=== PATIENT | male | born 1980 | race Caucasian/White ===

== ENCOUNTER 2017-04-27 20:25 | Inpatient (IN) | payer OTHER ==
[~2017-04-27] VITALS: Ht 177.8 cm; Wt 74.8 kg
[2017-04-27] MEDS ORDERED: FAMOTIDINE 20MG/5ML IV PUSH IV STA (20:35)
[2017-04-27] MEDS ORDERED: SODIUM CHLORIDE 0.9% 1000ML 2,000 ML IV STA (20:35)
[2017-04-27] MEDS ORDERED: ONDANSETRON INJ 2 MG/ML 2 ML VIAL IV STA (20:35)
--- NOTE | 2017-04-27 20:44 | EMERGENCY ROOM VISIT NOTE ---
History Report prepared by James: Teodora Willett Under the Supervision of: Dr. Orville Dallas M.D. First contact with patient: 20:31 Chief Complaint: ABDOMINAL PAIN Stated Complaint: STOMACH PAIN History of Present Illness The patient is a 36 year old male who presents to the Emergency Room with complaints of intermittent episodes of worsening abdominal pain that began 5 days ago. He reports that he has been having episodes of abdominal pain that seems to worsen randomly, noting that today after he ate yogurt and a turkey sandwich he began experiencing pain above his belly button and some abdominal swelling. The patient states that he has been unable to eat due to his discomfort, which he notes feels like someone hit him in the stomach. He denies any recent falls, nausea, vomiting, diarrhea, testicular pain, blood in urine, or pain with urination. The patient reports that his last bowel movement was about an hour ago, noting it was normal. He notes that he has not been passing more gas than usual. The patient denies a history of hernias, reflux, gastritis , or smoking. Source of History: patient Position: abdomen Quality: other (abdominal pain) Timing: other (persistent) Associated Symptoms: No nausea, No vomiting, No diarrhea Note: Associated symptoms include: pain above his belly button and some abdominal swelling. Patient denies: pain with urination, blood in urine, or testicular pain. Review of Systems See HPI for pertinent positives and negatives. A total of ten systems were reviewed and were otherwise negative. Past Medical & Surgical Medical Problems: (1) SBO (small bowel obstruction) Family History Patient reports no known family medical history. No pertinent family history. Social History Smoking Status: Never Smoker Smokeless Tobacco Use: Unknown Alcohol Use: none Drug Use: none Housing Status: lives with significant other Occupation Status: employed Current/Historical Medications No Active Prescriptions or Reported Meds Allergies Coded Allergies: No Known Allergies (Unverified , 04/27/17) Physical Exam Vital Signs Date Time Temp Pulse Resp B/P (MAP) Pulse Ox O2 Delivery O2 Flow Rate FiO2 04/27/17 22:44 72 16 130/75 98 Room Air 04/27/17 22:05 68 18 145/92 98 Room Air 04/27/17 20:26 37.0 71 18 142/76 96 Room Air Physical Exam GENERAL: Awake, alert, uncomfortable-appearing, but in no distress HENT: Dry mucous membranes. Normocephalic, atraumatic. Oropharynx unremarkable. EYES: Normal conjunctiva. Sclera non-icteric. NECK: Supple. No nuchal rigidity. FROM. No JVD. RESPIRATORY: Clear to auscultation. CARDIAC: Regular rate, normal rhythm. Extremities warm and well perfused. Pulses equal. ABDOMEN: Mild periumbilical tenderness to palpation. No peritoneal signs. RECTAL: Deferred. MUSCULOSKELETAL: Chest examination reveals no tenderness. The back is symmetrical on inspection without obvious abnormality. There is no CVA tenderness to palpation. No joint edema. LOWER EXTREMITIES: Calves are equal size bilaterally and non-tender. No edema. No discoloration. NEURO: Normal sensorium. No sensory or motor deficits noted. SKIN: No rash or jaundice noted. Medical Decision & Procedures ER Provider Diagnostic Interpretation: Radiology results as stated below per my review and radiologist interpretation: CT OF THE ABDOMEN AND PELVIS WITH CONTRAST CLINICAL HISTORY: periumbilical pain COMPARISON STUDY: None. TECHNIQUE: Following IV administration of 113 mL of Optiray-320, axial images of the abdomen and pelvis were obtained from the lung bases to the proximal femurs. Images were reviewed in the axial, sagittal, and coronal planes. IV contrast was administered without complication. A dose lowering technique was utilized adhering to the principles of ALARA. CT DOSE: 298.96 mGy.cm FINDINGS: Lung bases are clear. The liver, spleen, adrenal glands, kidneys and pancreas are normal. There is no biliary or pancreatic ductal dilatation. There is no hydronephrosis or hydroureter. No pneumatosis, free air or portal venous gas is present. The mid small bowel is fluid-filled and moderately dilated. There is mild associated mesenteric infiltration. Small bowel feces sign is noted. Transition point within the right upper quadrant is shown on image 217 of 466. Distal small bowel and the colon are decompressed. There is a tubular structure within the right upper quadrant which appears to represent a portion of the bowel. This is contiguous with a 3 cm enhancing focus within the inferior right upper quadrant shown on axial image 227. This contains a duct. This suggest heterotopic pancreatic tissue. There is no lymphadenopathy. IMPRESSION: 1. Findings consistent with moderate grade small bowel obstruction. Fluid-filled moderately dilated small bowel with transition point within the right upper quadrant, likely within the ileum. Mild associated mesenteric infiltration. The etiology for the small bowel obstruction is not entirely clear on this exam. 2. 3 cm enhancing focus within the right upper quadrant which is highly suggestive of heterotopic pancreatic tissue, possibly associated with a Meckel's diverticulum. It is unclear whether these findings are related to the small bowel obstruction. Electronically signed by: Broderick Michaels M.D. 04/27/2017 10:19 PM Dictated Date/Time: 04/27/2017 10:05 PM Laboratory Results 04/27/17 20:46 Red Blood Count 5.04, Mean Corpuscular Volume 90.9, Mean Corpuscular Hemoglobin 32.3, Mean Corpuscular Hemoglobin Concent 35.6, Mean Platelet Volume 10.3, Neutrophils (%) (Auto) 76.1, Lymphocytes (%) (Auto) 10.8, Monocytes (%) (Auto) 8.7, Eosinophils (%) (Auto) 4.2, Basophils (%) (Auto) 0.2, Neutrophils # (Auto) 6.26, Lymphocytes # (Auto) 0.89, Monocytes # (Auto) 0.72, Eosinophils # (Auto) 0.35, Basophils # (Auto) 0.02 04/27/17 20:46 Test 04/27/17 20:46 04/27/17 22:44 White Blood Count 8.24 K/uL (4.8-10.8) Red Blood Count 5.04 M/uL (4.7-6.1) Hemoglobin 16.3 g/dL (14.0-18.0) Hematocrit 45.8 % (42-52) Mean Corpuscular Volume 90.9 fL (80-100) Mean Corpuscular Hemoglobin 32.3 pg (25-34) Mean Corpuscular Hemoglobin Concent 35.6 g/dl (32-36) Platelet Count 251 K/uL (130-400) Mean Platelet Volume 10.3 fL (7.4-10.4) Neutrophils (%) (Auto) 76.1 % Lymphocytes (%) (Auto) 10.8 % Monocytes (%) (Auto) 8.7 % Eosinophils (%) (Auto) 4.2 % Basophils (%) (Auto) 0.2 % Neutrophils # (Auto) 6.26 K/uL (1.4-6.5) Lymphocytes # (Auto) 0.89 K/uL (1.2-3.4) Monocytes # (Auto) 0.72 K/uL (0.11-0.59) Eosinophils # (Auto) 0.35 K/uL (0-0.5) Basophils # (Auto) 0.02 K/uL (0-0.2) RDW Standard Deviation 40.7 fL (36.4-46.3) RDW Coefficient of Variation 12.3 % (11.5-14.5) Immature Granulocyte % (Auto) 0.0 % Immature Granulocyte # (Auto) 0.00 K/uL (0.00-0.02) Anion Gap 5.0 mmol/L (3-11) Est Creatinine Clear Calc Drug Dose 105.5 ml/min Estimated GFR () 112.9 Estimated GFR (Non- 97.4 BUN/Creatinine Ratio 19.9 (10-20) Calcium Level 9.8 mg/dl (8.5-10.1) Total Bilirubin 2.0 mg/dl (0.2-1) Direct Bilirubin 0.3 mg/dl (0-0.2) Aspartate Amino Transf (AST/SGOT) 14 U/L (15-37) Alanine Aminotransferase (ALT/SGPT) 19 U/L (12-78) Alkaline Phosphatase 84 U/L (45-117) Total Protein 8.6 gm/dl (6.4-8.2) Albumin 4.9 gm/dl (3.4-5.0) Lipase 116 U/L (73-393) Lactic Acid Level 0.6 mmol/L (0.4-2.0) Laboratory results reviewed by me Medications Administered Medications (Trade) Dose Ordered Sig/Elijah Route Start Time Stop Time Status Last Admin Dose Admin Sodium Chloride 2,000 ml @ 999 mls/hr Q2H1M STAT IV 04/27/17 20:35 04/27/17 22:35 DC 04/27/17 21:07 999 MLS/HR Famotidine (Pepcid 20mg Iv Push) 20 mg NOW STAT IV 04/27/17 20:35 04/27/17 20:40 DC 04/27/17 21:08 20 MG Ondansetron HCl (Zofran Inj) 4 mg NOW STAT IV 04/27/17 20:35 04/27/17 20:40 DC 04/27/17 21:08 4 MG Miscellaneous Information (Patient'S Allergy Info Needs Entered) 1 ea NOW STAT N/A 04/27/17 20:57 04/27/17 20:58 DC 04/27/17 20:57 1 EA Fentanyl Citrate (Fentanyl Inj) 100 mcg NOW STAT IV 04/27/17 22:30 04/27/17 22:31 DC 04/27/17 22:42 100 MCG ED Course 2031: The patient was evaluated in room A10. A complete history and physical exam was performed. 2234: I discussed the patient with Marcel Minor - he will evaluate the patient for further treatment. 2325: Marcel Dasilva- general surgery: paged and he suggests that we admit the patient. Medical Decision I reviewed the patient's past medical history, medications, and the nursing notes as described above. Differential diagnosis: Etiologies such as appendicitis, diverticulitis, PUD, biliary pathology, UTI, pancreatitis, obstruction, mesenteric ischemia, aortic pathology, infections, inflammatory bowel disease, renal colic, as well as others were entertained. The patient is a 36-year-old gentleman who presents emergency Department with persistent periumbilical abdominal pain that began on Wednesday worsened today per hpi. I'll patient is uncomfortable but no acute distress, afebrile with stable vital signs. On exam, patient has mild periumbilical tenderness to palpation but no peritoneal signs. No discrete tenderness over McBurney's point. Negative Scott sign. WBC and lactate wnl. CT abd/pel demonstrates possible high grade bowel obstruction. While patient has been able to eat and have bowel movements, the patient's pain could be c/w with this finding. Gen surg, Dr. Bush , paged and recommends medicine admission for monitoring and he will consult. Case d/w [facility], who will admit the patient for further management. Medication Reconcilliation Current Medication List: was personally reviewed by me Blood Pressure Screening Patient's blood pressure: Normal blood pressure Blood pressure disposition: Did not require urgent referral Consults Time Called: 2234 Consulting Physician: Marcel Minor Returned Call: [phone] I discussed the patient with Marcel Minor - he will evaluate the patient for further treatment. Additional Consults: Time Called: 2325 Consulted Physician: Marcel Dasilva - general surgery Returned Call: [phone] Additional Comments: Dr. Bush, [facility]: paged and he suggests that we admit the patient. Impression Primary Impression: SBO (small bowel obstruction) Scribe Attestation The scribe's documentation has been prepared under my direction and personally reviewed by me in its entirety. I confirm that the note above accurately reflects all work, treatment, procedures, and medical decision making performed by me. Departure Information Dispostion Being Evaluated By Hospitalist Prescriptions No Active Prescriptions or Reported Meds Forms Call Back Authorization, HOME CARE DOCUMENTATION FORM, IMPORTANT VISIT INFORMATION Patient Instructions My [facility]
[2017-04-27] MEDS ORDERED: PATIENT'S ALLERGY INFO NEEDS ENTERED STA (20:57)
[2017-04-27] MEDS ORDERED: OPTIRAY 320 IV PRN (21:00)
[2017-04-27 21:13] LABS: BASO % 0.2 %; BASO ABS # 0.02 K/uL (0-0.2); EOS % 4.2 %; EOS ABS # 0.35 K/uL (0-0.5); HEMATOCRIT 45.8 % (42-52); HEMOGLOBIN 16.3 g/dL (14.0-18.0); LYMPH % 10.8 %; LYMPH ABS # 0.89 K/uL (1.2-3.4); MEAN CELL VOLUME 90.9 fL (80-100); MEAN CORPUSCULAR HEMOGLOBIN 32.3 pg (25-34); MEAN CORPUSCULAR HGB CONC 35.6 g/dl (32-36); MEAN PLATELET VOLUME 10.3 fL (7.4-10.4); MONO % 8.7 %; MONO ABS # 0.72 K/uL (0.11-0.59); NEUT % 76.1 %; NEUT ABS # 6.26 K/uL (1.4-6.5); PLATELET COUNT 251 K/uL (130-400); RED CELL DISTRIBUTION WIDTH CV 12.3 % (11.5-14.5); RED CELL DISTRIBUTION WIDTH SD 40.7 fL (36.4-46.3); WHITE BLOOD COUNT 8.24 K/uL (4.8-10.8)
[2017-04-27 21:33] LABS: ALBUMIN 4.9 gm/dl (3.4-5.0); CALCIUM 9.8 mg/dl (8.5-10.1); CREATININE 0.98 mg/dl (0.60-1.40); POTASSIUM 3.8 mmol/L (3.5-5.1)
[2017-04-27 21:36] LABS: TOTAL PROTEIN 8.6 gm/dl (6.4-8.2)
--- NOTE | 2017-04-27 22:21 | DIAGNOSTIC IMAGING REPORT ---
CT OF THE ABDOMEN AND PELVIS WITH CONTRAST CLINICAL HISTORY: periumbilical pain COMPARISON STUDY: None. TECHNIQUE: Following IV administration of 113 mL of Optiray-320, axial images of the abdomen and pelvis were obtained from the lung bases to the proximal femurs. Images were reviewed in the axial, sagittal, and coronal planes. IV contrast was administered without complication. A dose lowering technique was utilized adhering to the principles of ALARA. CT DOSE: 298.96 mGy.cm FINDINGS: Lung bases are clear. The liver, spleen, adrenal glands, kidneys and pancreas are normal. There is no biliary or pancreatic ductal dilatation. There is no hydronephrosis or hydroureter. No pneumatosis, free air or portal venous gas is present. The mid small bowel is fluid-filled and moderately dilated. There is mild associated mesenteric infiltration. Small bowel feces sign is noted. Transition point within the right upper quadrant is shown on image 217 of 466. Distal small bowel and the colon are decompressed. There is a tubular structure within the right upper quadrant which appears to represent a portion of the bowel. This is contiguous with a 3 cm enhancing focus within the inferior right upper quadrant shown on axial image 227. This contains a duct. This suggest heterotopic pancreatic tissue. There is no lymphadenopathy. IMPRESSION: 1. Findings consistent with moderate grade small bowel obstruction. Fluid-filled moderately dilated small bowel with transition point within the right upper quadrant, likely within the ileum. Mild associated mesenteric infiltration. The etiology for the small bowel obstruction is not entirely clear on this exam. 2. 3 cm enhancing focus within the right upper quadrant which is highly suggestive of heterotopic pancreatic tissue, possibly associated with a Meckel's diverticulum. It is unclear whether these findings are related to the small bowel obstruction. Electronically signed by: Broderick Michaels M.D. 04/27/2017 10:19 PM Dictated Date/Time: 04/27/2017 10:05 PM
[2017-04-27] MEDS ORDERED: FENTANYL CITRATE INJ 50 MCG/1 ML 2 ML VIAL IV STA (22:30)
[2017-04-27] MEDS ORDERED: KETOROLAC TROMETHAMINE 30 MG/ML VIAL IV STA (23:09)
[2017-04-27] MEDS ORDERED: PROCHLORPERAZINE INJ 5 MG in SYRINGE 4 ML IV PRN (23:30)
[2017-04-27] MEDS ORDERED: LORAZEPAM 2 MG/ML 1 ML VIAL IV PRN (23:30)
[2017-04-27] MEDS ORDERED: ONDANSETRON INJ 2 MG/ML 2 ML VIAL IV PRN (23:30)
[2017-04-27] MEDS ORDERED: LORAZEPAM INJ 0.5 MG in SYRINGE 0.75 ML IV PRN (23:45)
[2017-04-27 23:50] VITALS: BP 130/73; PULSE 76; TEMP 37.3; O2SAT 93; O2SAT 95; Ht 177.8 cm; Wt 74.8 kg
[2017-04-28] VITALS (12 sets, daily range): BP systolic 109–130; BP diastolic 63–80; PULSE 57–69; TEMP 36.8–37.7; O2SAT 94–96
[2017-04-28] MEDS ORDERED: NURSING VERBAL MED ORDER ONE ×2 (01:30→07:30)
--- NOTE | 2017-04-28 01:34 | Surgery Consultation ---
Consultation Date of Consultation: Apr 28, 2017. Attending Physician: Dyan Palumbo DO History of Present Illness The patient is a 36 year old male who presents to the Emergency Room with complaints of intermittent episodes of worsening abdominal pain that began 5 days ago. He reports that he has been having episodes of abdominal pain that seems to worsen randomly, noting that today after he ate yogurt and a turkey sandwich he began experiencing pain above his belly button and some abdominal swelling. The patient states that he has been unable to eat due to his discomfort, which he notes feels like someone hit him in the stomach. He denies any recent falls, nausea, vomiting, diarrhea, testicular pain, blood in urine, or pain with urination. The patient reports that his last bowel movement was about an hour ago, noting it was normal. He notes that he has not been passing more gas than usual. The patient denies a history of hernias, reflux, gastritis , or smoking. I saw pt at bedside, I reviewed pt's H/P with pt, pt is still have abdominal pain, with nausea, no vomiting, pt passed small amount BM today, but pt is still have abdominal pain, pt could not eat food for 5 days, pt denies diarrhea , no fever. pt has no abdominal surgery history. Family History Patient reports no known family medical history. Social History Smoking Status: Never Smoker Smokeless Tobacco Use: No Alcohol Use: occasionally Drug Use: none Housing Status: lives with significant other Occupation Status: employed Allergies Coded Allergies: No Known Allergies (Unverified , 04/27/17) Home Medications No Active Prescriptions or Reported Meds Current Inpatient Medications Current Inpatient Medications Medications (Trade) Dose Ordered Sig/Elijah Route Start Time Stop Time Status Last Admin Dose Admin Ioversol (Optiray 320) 111 ml UD PRN IV 04/27/17 21:00 05/01/17 20:59 Ketorolac Tromethamine (Toradol Inj) 15 mg Q6H PRN IV. 04/27/17 23:15 05/02/17 23:14 Hydromorphone HCl (Dilaudid Inj) 0.5 mg Q4H PRN IV 04/27/17 23:15 05/11/17 23:14 Acetaminophen (Tylenol Tab) 650 mg Q4H PRN PO 04/27/17 23:30 05/27/17 23:29 Potassium Chloride/Sodium Chloride 1,000 ml @ 60 mls/hr [id number] IV 04/28/17 01:00 05/28/17 00:59 Lorazepam (Ativan Inj) 0.5 mg Q4H PRN IV 04/27/17 23:30 05/27/17 23:29 Prochlorperazine Edisylate 5 mg/ Syringe 5 ml @ 5 mls/min Q6H PRN IV 04/27/17 23:30 05/27/17 23:29 Ondansetron HCl (Zofran Inj) 4 mg Q6H PRN IV 04/27/17 23:30 05/27/17 23:29 Lorazepam 0.5 mg/ Syringe 1 ml @ 1 mls/min Q4H PRN IV 04/27/17 23:45 05/27/17 23:44 Review of Systems Constitutional: No fever, No chills, No sweats, No weight loss, No weakness, No fatigue, No problem reported Eyes: No worsening of vision, No eye pain, No redness, No discharge, No diplopia, No problem reported ENT: No hearing loss, No unusual epistaxis, No nasal symptoms, No sore throat, No tinnitus, No dental problems, No trouble swallowing, No problem reported Respiratory: No cough, No sputum, No wheezing, No shortness of breath, No dyspnea on exertion, No dyspnea at rest, No hemoptysis, No problem reported Cardiovascular: No chest pain, No orthopnea, No PND, No edema, No claudication , No palpitations, No problem reported Abdomen: + pain, + nausea Musculoskeletal: No joint pain, No muscle pain, No swelling, No calf pain, No problem reported Genitourinary - Male: No hematuria, No dysuria, No urinary frequency, No urinary urgency, No urinary hesitancy, No urinary retention, No urinary incontinence, No penile discharge, No lesions, No impotence, No problem reported Neurologic: No memory loss, No paralysis, No weakness, No numbness/tingling, No vertigo, No balance problems, No problem reported Psychiatric: No depression symptoms, No anhedonism, No anxiety, No insomnia, No substance abuse, No problem reported Endocrine: No fatigue, No excessive thirst, No excessive urination, No problem reported Hematologic / Lymphatic: No abnormal bleeding/bruising, No clotting problems, No swollen lymph nodes, No night sweats, No problem reported Allergic / Immunologic: No environmental allergies, No seasonal allergies, No pet sensitivities, No food allergies, No hives, No frequent infections, No poor healing, No prolonged convalescence, No problem reported Physical Exam Date Time Temp Pulse Resp B/P (MAP) Pulse Ox O2 Delivery O2 Flow Rate FiO2 04/27/17 23:50 37.3 76 18 130/73 95 Room Air 04/27/17 23:50 37.3 76 18 130/73 (92) 93 Room Air 04/27/17 23:33 61 18 145/84 97 04/27/17 22:44 72 16 130/75 98 Room Air 04/27/17 22:05 68 18 145/92 98 Room Air 04/27/17 20:26 37.0 71 18 142/76 96 Room Air General Appearance: WD/WN, + mild distress Head: normocephalic Eyes: normal inspection ENT: normal ENT inspection Neck: supple, no JVD Respiratory/Chest: chest non-tender, lungs clear, normal breath sounds, no respiratory distress Cardiovascular: regular rate, rhythm, no edema, no gallop, no JVD, no murmur Abdomen/GI: normal bowel sounds, + tenderness (at RUQ ), + distended, + guarding Extremities/Musculoskelatal: normal inspection, no calf tenderness, normal capillary refill Neurologic/Psych: no motor/sensory deficits, alert, normal mood/affect Skin: normal color, warm/dry, no rash Laboratory Results Last 24 Hours Test 04/27/17 20:46 04/27/17 22:44 White Blood Count 8.24 K/uL Red Blood Count 5.04 M/uL Hemoglobin 16.3 g/dL Hematocrit 45.8 % Mean Corpuscular Volume 90.9 fL Mean Corpuscular Hemoglobin 32.3 pg Mean Corpuscular Hemoglobin Concent 35.6 g/dl Platelet Count 251 K/uL Mean Platelet Volume 10.3 fL Neutrophils (%) (Auto) 76.1 % Lymphocytes (%) (Auto) 10.8 % Monocytes (%) (Auto) 8.7 % Eosinophils (%) (Auto) 4.2 % Basophils (%) (Auto) 0.2 % Neutrophils # (Auto) 6.26 K/uL Lymphocytes # (Auto) 0.89 K/uL Monocytes # (Auto) 0.72 K/uL Eosinophils # (Auto) 0.35 K/uL Basophils # (Auto) 0.02 K/uL RDW Standard Deviation 40.7 fL RDW Coefficient of Variation 12.3 % Immature Granulocyte % (Auto) 0.0 % Immature Granulocyte # (Auto) 0.00 K/uL Sodium Level 137 mmol/L Potassium Level 3.8 mmol/L Chloride Level 103 mmol/L Carbon Dioxide Level 29 mmol/L Anion Gap 5.0 mmol/L Blood Urea Nitrogen 19 mg/dl Creatinine 0.98 mg/dl Est Creatinine Clear Calc Drug Dose 105.5 ml/min Estimated GFR () 112.9 Estimated GFR (Non- 97.4 BUN/Creatinine Ratio 19.9 Random Glucose 86 mg/dl Calcium Level 9.8 mg/dl Total Bilirubin 2.0 mg/dl Direct Bilirubin 0.3 mg/dl Aspartate Amino Transf (AST/SGOT) 14 U/L Alanine Aminotransferase (ALT/SGPT) 19 U/L Alkaline Phosphatase 84 U/L Total Protein 8.6 gm/dl Albumin 4.9 gm/dl Lipase 116 U/L Lactic Acid Level 0.6 mmol/L Assessment & Plan CT scan-FINDINGS: Lung bases are clear. The liver, spleen, adrenal glands, kidneys and pancreas are normal. There is no biliary or pancreatic ductal dilatation. There is no hydronephrosis or hydroureter. No pneumatosis, free air or portal venous gas is present. The mid small bowel is fluid-filled and moderately dilated. There is mild associated mesenteric infiltration. Small bowel feces sign is noted. Transition point within the right upper quadrant is shown on image 217 of 466. Distal small bowel and the colon are decompressed. There is a tubular structure within the right upper quadrant which appears to represent a portion of the bowel. This is contiguous with a 3 cm enhancing focus within the inferior right upper quadrant shown on axial image 227. This contains a duct. This suggest heterotopic pancreatic tissue. There is no lymphadenopathy. IMPRESSION: 1. Findings consistent with moderate grade small bowel obstruction. Fluid-filled moderately dilated small bowel with transition point within the right upper quadrant, likely within the ileum. Mild associated mesenteric infiltration. The etiology for the small bowel obstruction is not entirely clear on this exam. 2. 3 cm enhancing focus within the right upper quadrant which is highly suggestive of heterotopic pancreatic tissue, possibly associated with a Meckel's diverticulum. It is unclear whether these findings are related to the small bowel obstruction. Assessment: pt is a 36 year old male who was admitted to hospital for abdominal and Dx SBO, pt has no abdominal surgery history, IMP: SBO, possible internal hernia, base on pt has 5 days history abdominal pain, not get better, I recommend to do exploratory laparotomy, possible bowel resection, stoma, D/W benefits, risks and alternatives of the procedure, the risks - infection, bleeding, anastomotic leak abscess, injury bowel, pt understood, he agrees with the surgery, I answered all questions.
[2017-04-28] MEDS ORDERED: EpHEDrine SULFATE INJ 50 MG/ML AMP IV PRN (01:45)
[2017-04-28] MEDS ORDERED: HYDROmorphone INJ 1 MG/ML SYR IV PRN (01:45)
[2017-04-28] MEDS ORDERED: ATROPINE SULFATE 0.1 MG/ML 5ML SYR IV PRN (01:45)
[2017-04-28] MEDS ORDERED: FENTANYL CITRATE INJ 50 MCG/1 ML 2 ML VIAL IV PRN (01:45)
[2017-04-28] MEDS ORDERED: ONDANSETRON INJ 2 MG/ML 2 ML VIAL IV PRN (01:45)
[2017-04-28] MEDS: NSS + 20MEQ KCL 1000ML 1,000 ML IV SCH ×2 (01:46→05:26)
[2017-04-28] MEDS ORDERED: SUCCINYLCHOLINE CHLORIDE 20 MG/ML 10 ML VIAL IV ONE (01:50)
[2017-04-28] MEDS ORDERED: PROPOFOL IV EMULSION 10 MG/ML 20 ML VIAL IV ONE (01:50)
[2017-04-28] MEDS ORDERED: ROCURONIUM BROMIDE 10 MG/ML 5 ML VIAL IV ONE (01:50)
[2017-04-28] MEDS ORDERED: ONDANSETRON INJ 2 MG/ML 2 ML VIAL ONE (01:50)
[2017-04-28] MEDS ORDERED: NEOSTIGMINE METHYLSULFATE 5 MG/5 ML SYR ONE (01:50)
[2017-04-28] MEDS ORDERED: DEXAMETHASONE SOD INJ 4 MG/ML VIAL ONE (01:50)
[2017-04-28] MEDS ORDERED: GLYCOPYRROLATE INJ 0.2 MG/ML VIAL ONE (01:50)
[2017-04-28] MEDS ORDERED: FENTANYL CITRATE INJ 50 MCG/1 ML 2 ML VIAL ONE ×2 (01:51→03:00)
[2017-04-28] MEDS ORDERED: MIDAZOLAM HCL 1 MG/ML 2ML VIAL ONE (01:51)
--- NOTE | 2017-04-28 02:15 | HISTORY & PHYSICAL EXAMINATION ---
DATE OF ADMISSION: 04/27/2017 CHIEF COMPLAINT: Abdominal pain. HISTORY OF PRESENT ILLNESS: History obtained from the patient, , and records. No significant medical history. Five days history of achy achy upper abdominal pain with nausea, no emesis, good bowel movement. Constant pain, worsening in the last few days. No fever, no chills. Patient brought to the Emergency Room by . MEDICAL HISTORY: As above. SURGERIES: None. HOME MEDICATIONS: None. ALLERGIES: No known drug allergies. FAMILY HISTORY: No family history of hypertension, cancer. PERSONAL AND SOCIAL HISTORY: Nonsmoker, no chronic intake of alcoholic beverages. Santa/mcdonough. REVIEW OF SYSTEMS: As per HPI. All 10 systems reviewed, all other ROS negative. PHYSICAL EXAMINATION: VITAL SIGNS: Blood pressure was noted to be 130/70, pulse rate 66, RR 18, temp 37, sats 98 on room air. GENERAL: Noted to be slightly uncomfortable, no respiratory distress, pleasant. SKIN: Normal color, warm. HEENT: [place] palpebral conjunctivae. No ptosis. Dry mucosa. NECK: Supple, nontender. CHEST: Clear to auscultation. No tenderness. HEART: Regular rate and rhythm, no murmur. ABDOMEN: Epigastric tenderness, some distention. EXTREMITIES: No edema. No gross deformities. No tenderness. NEUROLOGIC: Coherent. No gross focality. LABORATORY DATA: Hemoglobin was noted to be 16.3, hematocrit 45.8, white cell count 8.24, platelets 251. Sodium 137, potassium 3.8, chloride 103, CO2 of 29, BUN 19, creatinine 0.9, glucose was noted to be 86. LFTs, lipase normal CT abdomen and pelvis showed moderate grade small-bowel obstruction, fluid-filled moderate dilated small-bowel with transition part in the right upper quadrant, likely within ileum, with mild associated mesenteric infiltration, a 3 cm enhancing focus right upper quadrant, heterotrophic pancreatic tissue versus Meckel's diverticulum. ASSESSMENT: Abdominal Pain small-bowel obstruction on CT, heterotopic tissue right upper quadrant. PLAN: GMF analgesia, antiemetics, IV fluids. Bowel rest. Surgery consult. Abnormal abdominal CT, abdominal pain. DVT prophylaxis, SCDs. Full code. MTDD
[2017-04-28] MEDS ORDERED: BUPIVACAINE 0.5 % 5 MG/1 ML MPF 30ML VIAL ONE (02:19)
[2017-04-28] MEDS ORDERED: LIDOCAINE HCL 1% 20 ML VIAL ONE (02:19)
[2017-04-28] MEDS ORDERED: CEFAZOLIN SOD 1 GM VIAL ONE (02:54)
[2017-04-28] MEDS ORDERED: BACITRACIN OINT 15 GM TUBE ONE (03:33)
--- NOTE | 2017-04-28 04:12 | Anesthesiology Progress Note ---
Anesthesia Post Op Note Date & Time Apr 28, 2017 at 04:11 Vital Signs Pain Intensity: 0.0 Vital Signs Past 12 Hours Date Time Temp Pulse Resp B/P (MAP) Pulse Ox O2 Delivery O2 Flow Rate FiO2 04/27/17 23:50 37.3 76 18 130/73 95 Room Air 04/27/17 23:50 93 Room Air 04/27/17 23:50 37.3 76 18 130/73 (92) 93 Room Air 04/27/17 23:33 61 18 145/84 97 04/27/17 22:44 72 16 130/75 98 Room Air 04/27/17 22:05 68 18 145/92 98 Room Air 04/27/17 20:26 37.0 71 18 142/76 96 Room Air Notes Mental Status: alert / awake / arousable, participated in evaluation Pt Amnestic to Procedure: Yes Nausea / Vomiting: adequately controlled Pain: adequately controlled Airway Patency, RR, SpO2: stable & adequate BP & HR: stable & adequate Hydration State: stable & adequate Anesthetic Complications: no major complications apparent
[2017-04-28] MEDS ORDERED: CEFAZOLIN SOD 2000MG/15 ML IV PUSH IV ONE (06:00)
[2017-04-28 06:57] LABS: EOS % 0.1 %; EOS ABS # 0.01 K/uL (0-0.5); HEMATOCRIT 43.7 % (42-52); HEMOGLOBIN 15.5 g/dL (14.0-18.0); IG# 0.01 K/uL (0.00-0.02); LYMPH % 2.2 %; LYMPH ABS # 0.24 K/uL (1.2-3.4); MEAN CELL VOLUME 91.8 fL (80-100); MEAN CORPUSCULAR HEMOGLOBIN 32.6 pg (25-34); MEAN CORPUSCULAR HGB CONC 35.5 g/dl (32-36); MEAN PLATELET VOLUME 10.3 fL (7.4-10.4); MONO ABS # 0.22 K/uL (0.11-0.59); NEUT % 95.6 %; NEUT ABS # 10.43 K/uL (1.4-6.5); PLATELET COUNT 233 K/uL (130-400); RED CELL DISTRIBUTION WIDTH CV 12.2 % (11.5-14.5); RED CELL DISTRIBUTION WIDTH SD 41.1 fL (36.4-46.3); WHITE BLOOD COUNT 10.91 K/uL (4.8-10.8)
[2017-04-28] MEDS: HYDROmorphone INJ 0.5 MG/0.5 ML SYR IV PRN ×4 (07:12→22:00)
--- NOTE | 2017-04-28 07:20 | OPERATIVE REPORT ---
DATE OF OPERATION: 04/28/2017 PREOPERATIVE DIAGNOSIS: Small-bowel obstruction. POSTOPERATIVE DIAGNOSIS: Same. PROCEDURE: Exploratory laparotomy, lysis of fibber tissue SURGEON: Jairo Bush MD. ANESTHESIA: General. ESTIMATED BLOOD LOSS: About 10 mL IV FLUIDS: 1000 mL FINDINGS: Small-bowel obstruction caused by the fiber tissue of adhesion. COMPLICATIONS: None. INDICATIONS FOR THE PROCEDURE: This is a 36-year-old gentleman who presented to the ED with 5-day history of acute abdominal pain and the patient had a CT scan showing small-bowel obstruction. The patient will be required to do exploratory laparotomy, possible bowel resection and stoma. I did talk to the patient about the benefit and risk, alternate procedure. I indicated the risks may include but not limited such as bleeding, infection, abscess, anastomosis leak, injury to the bowel. The patient understands. He signed informed consent. He agreed to proceed with procedure. I answered all questions. DETAILS OF PROCEDURE: We brought the patient to the OR, put the patient in supine position. The patient received SCD on bilateral legs to prevent DVT. Also, the patient received 2 grams Ancef IV for prophylactic antibiotic. The patient received general anesthesia without difficulty. The patient also received Mooney catheter insertion. The abdomen was prepped and draped in routine sterile fashion after timeout, I made a midline incision, opened fascia, opened peritoneum under direct vision into the abdomen showing there was some yellow free fluid inside the abdomen and the small-bowel was dilated significantly. Then, we ran the small-bowel and then found the transition point in the right upper quadrant area. There was some fiber tissue band blocking the small-bowel. So I took down the band and we ran the small-bowel. The small bowel had no significant ischemia sign. The color was a little bit dark, but after we released the adhesion band, the small-bowel color changed to pink. When we ran the small-bowel, we found the patient had meckel's diverticulum 2 feet from cecum, but no infection sign, no obstruction sign. The lumen was patent. At this moment, no surgical resection the diverticulum. Hemostasis obtained and checked the liver and gallbladder were normal, stomach normal, the appendix was normal finding. At this moment, we closed the abdomen incision. Closed the fascial layer by using #1 PDS continuous running, closed subcutaneous layer by using 2-0 Vicryl continuous running, closed skin by using staple. We put the dressing on. The patient tolerated the procedure well. All the instrument, needle, sponge count correct x2 at the end of the case. The patient transferred to recovery room in stable condition. I attest to the content of the Intraoperative Record and any orders documented therein. Any exceptions are noted below. MTDD
[2017-04-28] MEDS ORDERED: ACETAMINOPHEN IV 100 ML IV STA (07:28)
[2017-04-28 07:31] LABS: ALBUMIN 3.9 gm/dl (3.4-5.0); CALCIUM 8.4 mg/dl (8.5-10.1); CREATININE 1.03 mg/dl (0.60-1.40)
[2017-04-28 07:36] LABS: TOTAL PROTEIN 7.1 gm/dl (6.4-8.2)
--- NOTE | 2017-04-28 08:10 | Surgery Progress Note ---
Surgery Progress Note Date of Service Apr 28, 2017. Subjective + feeling well F/U S/P exp lap, lysis adhesion, POD 5 hours, pt is stable, no nausea, no vomiting, T 37.6 Objective Vital Signs: Date Time Temp Pulse Resp B/P (MAP) Pulse Ox O2 Delivery O2 Flow Rate FiO2 04/28/17 06:45 37.6 69 17 122/70 (87) 96 Room Air 04/28/17 05:45 37.5 63 16 116/67 (83) 96 Room Air 04/28/17 05:15 37.5 58 16 130/63 (85) 94 Room Air 04/28/17 05:02 37.3 65 17 111/70 (84) 96 Room Air 04/28/17 04:52 96 Room Air 04/28/17 04:45 37.3 59 17 129/75 (93) 95 Room Air 04/28/17 04:27 36.8 64 16 121/69 95 Room Air 04/28/17 04:10 60 16 134/76 95 Room Air 04/28/17 04:05 59 16 144/70 99 Room Air 04/28/17 04:00 63 16 137/75 99 Room Air 04/28/17 03:55 36.5 65 16 130/90 100 Room Air 04/27/17 23:50 37.3 76 18 130/73 95 Room Air 04/27/17 23:50 93 Room Air 04/27/17 23:50 37.3 76 18 130/73 (92) 93 Room Air 04/27/17 23:33 61 18 145/84 97 04/27/17 22:44 72 16 130/75 98 Room Air 04/27/17 22:05 68 18 145/92 98 Room Air 04/27/17 20:26 37.0 71 18 142/76 96 Room Air General Appearance: WD/WN, no apparent distress Head: normocephalic Neck: supple, no JVD Respiratory/Chest: chest non-tender, lungs clear Cardiovascular: regular rate, rhythm, no edema, no gallop, no JVD, no murmur Abdomen: normal bowel sounds, non distended, + tenderness (at incision site) Incision(s): clean, dry, intact Extremities: normal range of motion, non-tender, normal inspection Laboratory Results: Results Past 24 Hours Test 04/27/17 20:46 04/27/17 22:44 04/28/17 06:43 04/28/17 06:46 Range/Units White Blood Count 8.24 10.91 4.8-10.8 K/uL Red Blood Count 5.04 4.76 4.7-6.1 M/uL Hemoglobin 16.3 15.5 14.0-18.0 g/dL Hematocrit 45.8 43.7 42-52 % Mean Corpuscular Volume 90.9 91.8 80-100 fL Mean Corpuscular Hemoglobin 32.3 32.6 25-34 pg Mean Corpuscular Hemoglobin Concent 35.6 35.5 32-36 g/dl Platelet Count 251 233 130-400 K/uL Mean Platelet Volume 10.3 10.3 7.4-10.4 fL Neutrophils (%) (Auto) 76.1 95.6 % Lymphocytes (%) (Auto) 10.8 2.2 % Monocytes (%) (Auto) 8.7 2.0 % Eosinophils (%) (Auto) 4.2 0.1 % Basophils (%) (Auto) 0.2 0.0 % Neutrophils # (Auto) 6.26 10.43 1.4-6.5 K/uL Lymphocytes # (Auto) 0.89 0.24 1.2-3.4 K/uL Monocytes # (Auto) 0.72 0.22 0.11-0.59 K/uL Eosinophils # (Auto) 0.35 0.01 0-0.5 K/uL Basophils # (Auto) 0.02 0.00 0-0.2 K/uL RDW Standard Deviation 40.7 41.1 36.4-46.3 fL RDW Coefficient of Variation 12.3 12.2 11.5-14.5 % Immature Granulocyte % (Auto) 0.0 0.1 % Immature Granulocyte # (Auto) 0.00 0.01 0.00-0.02 K/uL Sodium Level 137 136 136-145 mmol/L Potassium Level 3.8 4.0 3.5-5.1 mmol/L Chloride Level 103 104 98-107 mmol/L Carbon Dioxide Level 29 26 21-32 mmol/L Anion Gap 5.0 6.0 3-11 mmol/L Blood Urea Nitrogen 19 15 7-18 mg/dl Creatinine 0.98 1.03 0.60-1.40 mg/dl Est Creatinine Clear Calc Drug Dose 105.5 100.4 ml/min Estimated GFR () 112.9 106.3 Estimated GFR (Non- 97.4 91.7 BUN/Creatinine Ratio 19.9 14.7 10-20 Random Glucose 86 109 70-99 mg/dl Calcium Level 9.8 8.4 8.5-10.1 mg/dl Total Bilirubin 2.0 2.4 0.2-1 mg/dl Direct Bilirubin 0.3 0-0.2 mg/dl Aspartate Amino Transf (AST/SGOT) 14 11 15-37 U/L Alanine Aminotransferase (ALT/SGPT) 19 16 12-78 U/L Alkaline Phosphatase 84 75 45-117 U/L Total Protein 8.6 7.1 6.4-8.2 gm/dl Albumin 4.9 3.9 3.4-5.0 gm/dl Lipase 116 73-393 U/L Lactic Acid Level 0.6 1.0 0.4-2.0 mmol/L Globulin 3.2 2.5-4.0 gm/dl Albumin/Globulin Ratio 1.2 0.9-2 Assessment & Plan I informed pt about OR finding and the procedure pt had, pt understood, I answered all questions, continue treatment repeat labs in am, will F/U
--- NOTE | 2017-04-28 08:13 | Anesthesiology Progress Note ---
Anesthesia Post Op Note Date & Time Apr 28, 2017 at 08:12 Vital Signs Pain Intensity: 7.0 Vital Signs Past 12 Hours Date Time Temp Pulse Resp B/P (MAP) Pulse Ox O2 Delivery O2 Flow Rate FiO2 04/28/17 06:45 37.6 69 17 122/70 (87) 96 Room Air 04/28/17 05:45 37.5 63 16 116/67 (83) 96 Room Air 04/28/17 05:15 37.5 58 16 130/63 (85) 94 Room Air 04/28/17 05:02 37.3 65 17 111/70 (84) 96 Room Air 04/28/17 04:52 96 Room Air 04/28/17 04:45 37.3 59 17 129/75 (93) 95 Room Air 04/28/17 04:27 36.8 64 16 121/69 95 Room Air 04/28/17 04:10 60 16 134/76 95 Room Air 04/28/17 04:05 59 16 144/70 99 Room Air 04/28/17 04:00 63 16 137/75 99 Room Air 04/28/17 03:55 36.5 65 16 130/90 100 Room Air 04/27/17 23:50 37.3 76 18 130/73 95 Room Air 04/27/17 23:50 93 Room Air 04/27/17 23:50 37.3 76 18 130/73 (92) 93 Room Air 04/27/17 23:33 61 18 145/84 97 04/27/17 22:44 72 16 130/75 98 Room Air 04/27/17 22:05 68 18 145/92 98 Room Air 04/27/17 20:26 37.0 71 18 142/76 96 Room Air Notes Mental Status: alert / awake / arousable, participated in evaluation Pt Amnestic to Procedure: Yes Nausea / Vomiting: adequately controlled Pain: adequately controlled Airway Patency, RR, SpO2: stable & adequate BP & HR: stable & adequate Hydration State: stable & adequate Anesthetic Complications: no major complications apparent
[2017-04-28] MEDS: D5W AND 1/2NSS + 20MEQ KCL 1,000 ML IV SCH ×2 (08:41→19:47)
[2017-04-28] MEDS: METRONIDAZOLE / NSS 500 MG in PREMIXED NSS 100 ML IV SCH ×3 (08:41→22:57)
[2017-04-28] MEDS: KETOROLAC TROMETHAMINE 15 MG/ML VIAL IV. PRN ×2 (08:54→19:49)
[2017-04-28] MEDS: CIPROFLOXACIN / D5W 400 MG in PREMIXED IN D5W 200 ML IV SCH ×2 (10:08→20:37)
--- NOTE | 2017-04-28 19:06 | Progress Note ---
Internal Med Progress Note Date of Service: Apr 28, 2017. Provider Documentation: SUBJECTIVE: s/p abdomen surgery today on ng tube says abdomen pain and nausea improved afebrile no chest pain or sob no cough OBJECTIVE: Vital Signs-as noted below Exam: General-alert and awake. Not in distress ENT-normal hearing Neck-no neck masses Lungs-cta b/l no wheezing or crackles Heart-s1 and s2 heard regular no murmurs Abdomen- s/p surgery no bowel sounds no distension Extremities-no edema no erythema Neuro-alert and awake and oriented moves extremities Lab data as noted below. ASSESSMENT & PLAN: sbo s/p surgery and adhesion lysis on ng tube iv fluids iv pain meds and antiemetics will monitor DVT PROPHYLAXIS scds DISPOSITION to be determined Vital Signs: Date Time Temp Pulse Resp B/P (MAP) Pulse Ox O2 Delivery O2 Flow Rate FiO2 04/28/17 15:55 94 Room Air 04/28/17 15:35 37.4 57 18 109/67 (81) 94 Room Air 04/28/17 12:58 37.7 04/28/17 10:38 95 Room Air 04/28/17 08:40 Room Air 04/28/17 07:45 37.5 69 16 122/80 (94) 95 Room Air 04/28/17 06:45 37.6 69 17 122/70 (87) 96 Room Air 04/28/17 05:45 37.5 63 16 116/67 (83) 96 Room Air 04/28/17 05:15 37.5 58 16 130/63 (85) 94 Room Air 04/28/17 05:02 37.3 65 17 111/70 (84) 96 Room Air 04/28/17 04:52 96 Room Air 04/28/17 04:45 37.3 59 17 129/75 (93) 95 Room Air 04/28/17 04:27 36.8 64 16 121/69 95 Room Air 04/28/17 04:10 60 16 134/76 95 Room Air 04/28/17 04:05 59 16 144/70 99 Room Air 04/28/17 04:00 63 16 137/75 99 Room Air 04/28/17 03:55 36.5 65 16 130/90 100 Room Air 04/27/17 23:50 37.3 76 18 130/73 95 Room Air 04/27/17 23:50 93 Room Air 04/27/17 23:50 37.3 76 18 130/73 (92) 93 Room Air 04/27/17 23:33 61 18 145/84 97 04/27/17 22:44 72 16 130/75 98 Room Air 04/27/17 22:05 68 18 145/92 98 Room Air 04/27/17 20:26 37.0 71 18 142/76 96 Room Air Lab Results: Results Past 24 Hours Test 04/27/17 20:46 04/27/17 22:44 04/28/17 06:43 04/28/17 06:46 Range/Units White Blood Count 8.24 10.91 4.8-10.8 K/uL Red Blood Count 5.04 4.76 4.7-6.1 M/uL Hemoglobin 16.3 15.5 14.0-18.0 g/dL Hematocrit 45.8 43.7 42-52 % Mean Corpuscular Volume 90.9 91.8 80-100 fL Mean Corpuscular Hemoglobin 32.3 32.6 25-34 pg Mean Corpuscular Hemoglobin Concent 35.6 35.5 32-36 g/dl Platelet Count 251 233 130-400 K/uL Mean Platelet Volume 10.3 10.3 7.4-10.4 fL Neutrophils (%) (Auto) 76.1 95.6 % Lymphocytes (%) (Auto) 10.8 2.2 % Monocytes (%) (Auto) 8.7 2.0 % Eosinophils (%) (Auto) 4.2 0.1 % Basophils (%) (Auto) 0.2 0.0 % Neutrophils # (Auto) 6.26 10.43 1.4-6.5 K/uL Lymphocytes # (Auto) 0.89 0.24 1.2-3.4 K/uL Monocytes # (Auto) 0.72 0.22 0.11-0.59 K/uL Eosinophils # (Auto) 0.35 0.01 0-0.5 K/uL Basophils # (Auto) 0.02 0.00 0-0.2 K/uL RDW Standard Deviation 40.7 41.1 36.4-46.3 fL RDW Coefficient of Variation 12.3 12.2 11.5-14.5 % Immature Granulocyte % (Auto) 0.0 0.1 % Immature Granulocyte # (Auto) 0.00 0.01 0.00-0.02 K/uL Sodium Level 137 136 136-145 mmol/L Potassium Level 3.8 4.0 3.5-5.1 mmol/L Chloride Level 103 104 98-107 mmol/L Carbon Dioxide Level 29 26 21-32 mmol/L Anion Gap 5.0 6.0 3-11 mmol/L Blood Urea Nitrogen 19 15 7-18 mg/dl Creatinine 0.98 1.03 0.60-1.40 mg/dl Est Creatinine Clear Calc Drug Dose 105.5 100.4 ml/min Estimated GFR () 112.9 106.3 Estimated GFR (Non- 97.4 91.7 BUN/Creatinine Ratio 19.9 14.7 10-20 Random Glucose 86 109 70-99 mg/dl Calcium Level 9.8 8.4 8.5-10.1 mg/dl Total Bilirubin 2.0 2.4 0.2-1 mg/dl Direct Bilirubin 0.3 0-0.2 mg/dl Aspartate Amino Transf (AST/SGOT) 14 11 15-37 U/L Alanine Aminotransferase (ALT/SGPT) 19 16 12-78 U/L Alkaline Phosphatase 84 75 45-117 U/L Total Protein 8.6 7.1 6.4-8.2 gm/dl Albumin 4.9 3.9 3.4-5.0 gm/dl Lipase 116 73-393 U/L Lactic Acid Level 0.6 1.0 0.4-2.0 mmol/L Globulin 3.2 2.5-4.0 gm/dl Albumin/Globulin Ratio 1.2 0.9-2
[2017-04-29] MEDS ORDERED: NURSING VERBAL MED ORDER ONE (02:15)
[2017-04-29] MEDS: HYDROmorphone INJ 0.5 MG/0.5 ML SYR IV PRN ×4 (02:20→22:42)
[2017-04-29 03:51] VITALS: BP 112/55; PULSE 51; TEMP 36.8; O2SAT 96
[2017-04-29] MEDS: KETOROLAC TROMETHAMINE 15 MG/ML VIAL IV. PRN ×3 (04:53→19:24)
[2017-04-29] MEDS: D5W AND 1/2NSS + 20MEQ KCL 1,000 ML IV SCH ×2 (06:19→16:12)
[2017-04-29 06:42] LABS: HEMATOCRIT 40.1 % (42-52); MEAN CELL VOLUME 92.6 fL (80-100); MEAN CORPUSCULAR HEMOGLOBIN 32.3 pg (25-34); MEAN CORPUSCULAR HGB CONC 34.9 g/dl (32-36); MEAN PLATELET VOLUME 10.3 fL (7.4-10.4); PLATELET COUNT 204 K/uL (130-400); RED CELL DISTRIBUTION WIDTH CV 12.3 % (11.5-14.5); RED CELL DISTRIBUTION WIDTH SD 41.9 fL (36.4-46.3)
[2017-04-29 07:11] LABS: ALBUMIN 3.3 gm/dl (3.4-5.0); CALCIUM 8.1 mg/dl (8.5-10.1); CREATININE 0.78 mg/dl (0.60-1.40)
[2017-04-29 07:13] LABS: TOTAL PROTEIN 6.6 gm/dl (6.4-8.2)
[2017-04-29 07:35] VITALS: BP 111/69; PULSE 58; TEMP 36.6; O2SAT 99
[2017-04-29 07:46] VITALS: O2SAT 99
--- NOTE | 2017-04-29 10:01 | Surgery Progress Note ---
Surgery Progress Note Date of Service Apr 29, 2017. Subjective Post OP Day: 1 (s/p ex lap, lysis of adhesive band in RUQ) + complaints (abdominal pain mostly incisional), + pain controlled, No chest pain, No ambulating, No SOB, No bowel movement, No flatus, No nausea, No vomiting Objective Vital Signs: Date Time Temp Pulse Resp B/P (MAP) Pulse Ox O2 Delivery O2 Flow Rate FiO2 04/29/17 07:46 99 Room Air 04/29/17 07:35 36.6 58 17 111/69 (83) 99 Room Air 04/29/17 03:51 36.8 51 16 112/55 (74) 96 Room Air 04/28/17 23:50 Room Air 04/28/17 23:02 36.8 58 16 114/65 (81) 96 Room Air 04/28/17 15:55 94 Room Air 04/28/17 15:35 37.4 57 18 109/67 (81) 94 Room Air 04/28/17 12:58 37.7 04/28/17 10:38 95 Room Air Physical Exam: nasogastric drainage (bilious drainage) General Appearance: WD/WN, no apparent distress Head: normocephalic, atraumatic Neck: trachea midline Respiratory/Chest: no respiratory distress, no accessory muscle use Abdomen: soft, + distended, + tenderness (at midline incision) Incision(s): clean, dry (dressing clean and dry, not inspected on POD # 1) Laboratory Results: Results Past 24 Hours Test 04/29/17 06:18 Range/Units White Blood Count 5.50 4.8-10.8 K/uL Red Blood Count 4.33 4.7-6.1 M/uL Hemoglobin 14.0 14.0-18.0 g/dL Hematocrit 40.1 42-52 % Mean Corpuscular Volume 92.6 80-100 fL Mean Corpuscular Hemoglobin 32.3 25-34 pg Mean Corpuscular Hemoglobin Concent 34.9 32-36 g/dl RDW Standard Deviation 41.9 36.4-46.3 fL RDW Coefficient of Variation 12.3 11.5-14.5 % Platelet Count 204 130-400 K/uL Mean Platelet Volume 10.3 7.4-10.4 fL Sodium Level 138 136-145 mmol/L Potassium Level 4.0 3.5-5.1 mmol/L Chloride Level 104 98-107 mmol/L Carbon Dioxide Level 28 21-32 mmol/L Anion Gap 5.0 3-11 mmol/L Blood Urea Nitrogen 11 7-18 mg/dl Creatinine 0.78 0.60-1.40 mg/dl Est Creatinine Clear Calc Drug Dose 132.6 ml/min Estimated GFR () 132.7 Estimated GFR (Non- 114.5 BUN/Creatinine Ratio 14.0 10-20 Random Glucose 109 70-99 mg/dl Calcium Level 8.1 8.5-10.1 mg/dl Total Bilirubin 2.4 0.2-1 mg/dl Direct Bilirubin 0.2 0-0.2 mg/dl Aspartate Amino Transf (AST/SGOT) 10 15-37 U/L Alanine Aminotransferase (ALT/SGPT) 16 12-78 U/L Alkaline Phosphatase 59 45-117 U/L Total Protein 6.6 6.4-8.2 gm/dl Albumin 3.3 3.4-5.0 gm/dl Globulin 3.3 2.5-4.0 gm/dl Albumin/Globulin Ratio 1.0 0.9-2 Assessment & Plan POD # 1 s/p ex lap, lysis of adhesive band in RUQ - vitals stable, no leukocytosis - T. Bili 2.4, direct bili wnl, lfts wnl - abdominal pain moderate, controlled - no return of bowel function - abdomen slightly distended. - NGT with bilious output Plan: Continue current pain management Continue NPO except ice chips Continue NGT to LIS Encouraged OOB to chair and ambulation may clamp NGT to ambulate Continue SCDs Start IV Reglan 10 mg IV 6 hrs for GI stimulation Dressing changes to start tomorrow repeat am labs T. bili elevated, repeat tomorrow. May need RUQ ultrasound if still elevated tomorrow. Dr. Bush has seen and examined patient, agrees with above
[2017-04-29] MEDS: METOCLOPRAMIDE HCL INJ 5 MG/ML 2 ML VIAL IV. SCH ×2 (12:20→18:38)
[2017-04-29 15:27] VITALS: BP 122/68; PULSE 62; TEMP 36.7; O2SAT 98
--- NOTE | 2017-04-29 18:01 | Progress Note ---
Internal Med Progress Note Date of Service: Apr 29, 2017. Provider Documentation: SUBJECTIVE: s/p abdomen surgery still on ng tube has pain at surgery site no nausea on ice chips afebrile no chest pain or sob passing gas OBJECTIVE: Vital Signs-as noted below Exam: General-alert and awake. Not in distress ENT-normal hearing Neck-no neck masses Lungs-cta b/l no wheezing or crackles Heart-s1 and s2 heard regular no murmurs Abdomen- s/p surgery no bowel sounds no distension Extremities-no edema no erythema Neuro-alert and awake and oriented moves extremities Lab data as noted below. ASSESSMENT & PLAN: sbo s/p surgery and adhesion lysis on ng tube iv fluids iv pain meds and antiemetics diet as per surgery will monitor DVT PROPHYLAXIS scds DISPOSITION to be determined Vital Signs: Date Time Temp Pulse Resp B/P (MAP) Pulse Ox O2 Delivery O2 Flow Rate FiO2 04/29/17 15:30 Room Air 04/29/17 15:27 36.7 62 18 122/68 (86) 98 Room Air 04/29/17 07:46 99 Room Air 04/29/17 07:35 36.6 58 17 111/69 (83) 99 Room Air 04/29/17 03:51 36.8 51 16 112/55 (74) 96 Room Air 04/28/17 23:50 Room Air 04/28/17 23:02 36.8 58 16 114/65 (81) 96 Room Air Lab Results: Results Past 24 Hours Test 04/29/17 06:18 Range/Units White Blood Count 5.50 4.8-10.8 K/uL Red Blood Count 4.33 4.7-6.1 M/uL Hemoglobin 14.0 14.0-18.0 g/dL Hematocrit 40.1 42-52 % Mean Corpuscular Volume 92.6 80-100 fL Mean Corpuscular Hemoglobin 32.3 25-34 pg Mean Corpuscular Hemoglobin Concent 34.9 32-36 g/dl RDW Standard Deviation 41.9 36.4-46.3 fL RDW Coefficient of Variation 12.3 11.5-14.5 % Platelet Count 204 130-400 K/uL Mean Platelet Volume 10.3 7.4-10.4 fL Sodium Level 138 136-145 mmol/L Potassium Level 4.0 3.5-5.1 mmol/L Chloride Level 104 98-107 mmol/L Carbon Dioxide Level 28 21-32 mmol/L Anion Gap 5.0 3-11 mmol/L Blood Urea Nitrogen 11 7-18 mg/dl Creatinine 0.78 0.60-1.40 mg/dl Est Creatinine Clear Calc Drug Dose 132.6 ml/min Estimated GFR () 132.7 Estimated GFR (Non- 114.5 BUN/Creatinine Ratio 14.0 10-20 Random Glucose 109 70-99 mg/dl Calcium Level 8.1 8.5-10.1 mg/dl Total Bilirubin 2.4 0.2-1 mg/dl Direct Bilirubin 0.2 0-0.2 mg/dl Aspartate Amino Transf (AST/SGOT) 10 15-37 U/L Alanine Aminotransferase (ALT/SGPT) 16 12-78 U/L Alkaline Phosphatase 59 45-117 U/L Total Protein 6.6 6.4-8.2 gm/dl Albumin 3.3 3.4-5.0 gm/dl Globulin 3.3 2.5-4.0 gm/dl Albumin/Globulin Ratio 1.0 0.9-2
[2017-04-29 22:54] VITALS: BP 132/75; PULSE 60; TEMP 36.8; O2SAT 95
[2017-04-30] MEDS: METOCLOPRAMIDE HCL INJ 5 MG/ML 2 ML VIAL IV. SCH ×2 (00:02→05:36)
[2017-04-30] MEDS: D5W AND 1/2NSS + 20MEQ KCL 1,000 ML IV SCH ×2 (02:18→12:21)
[2017-04-30] MEDS: KETOROLAC TROMETHAMINE 15 MG/ML VIAL IV. PRN (02:23)
[2017-04-30] MEDS: ACETAMINOPHEN 325 MG TAB PO PRN ×2 (05:44→16:54)
--- NOTE | 2017-04-30 06:44 | Surgery Progress Note ---
Surgery Progress Note Date of Service Apr 30, 2017. Subjective Post OP Day: 2 + feeling well pt is doing better, passed gas, no abdominal pain, NGT 400ml, Objective Vital Signs: Date Time Temp Pulse Resp B/P (MAP) Pulse Ox O2 Delivery O2 Flow Rate FiO2 04/30/17 00:05 Room Air 04/29/17 22:54 36.8 60 16 132/75 (94) 95 Room Air 04/29/17 15:30 Room Air 04/29/17 15:27 36.7 62 18 122/68 (86) 98 Room Air 04/29/17 07:46 99 Room Air 04/29/17 07:35 36.6 58 17 111/69 (83) 99 Room Air General Appearance: WD/WN, no apparent distress Head: normocephalic Neck: supple, no JVD Respiratory/Chest: chest non-tender, lungs clear Cardiovascular: regular rate, rhythm, no murmur Abdomen: normal bowel sounds, non tender, non distended, soft Incision(s): clean, dry, intact Extremities: normal range of motion, non-tender, normal inspection Laboratory Results: Results Past 24 Hours Test 04/30/17 04:44 Range/Units Assessment & Plan I informed pt about OR finding and the procedure pt had, pt understood, I answered all questions, continue treatment repeat labs in am, will F/U 04/30/2017 doing better, clear diet, pt can be discharged to home if he tolerated diet, F/U 1 week, I informed pt about OR finding and the procedure pt had, pt understood, I answered all questions, continue treatment repeat labs in am, will F/U
[2017-04-30 07:01] VITALS: BP 132/81; PULSE 59; TEMP 36.8; O2SAT 98
[2017-04-30 07:53] LABS: HEMATOCRIT 44.3 % (42-52); HEMOGLOBIN 15.2 g/dL (14.0-18.0); MEAN CELL VOLUME 94.1 fL (80-100); MEAN CORPUSCULAR HEMOGLOBIN 32.3 pg (25-34); MEAN CORPUSCULAR HGB CONC 34.3 g/dl (32-36); MEAN PLATELET VOLUME 10.3 fL (7.4-10.4); PLATELET COUNT 237 K/uL (130-400); RED CELL DISTRIBUTION WIDTH CV 12.2 % (11.5-14.5); RED CELL DISTRIBUTION WIDTH SD 41.8 fL (36.4-46.3); WHITE BLOOD COUNT 6.11 K/uL (4.8-10.8)
[2017-04-30 08:28] LABS: ALBUMIN 3.8 gm/dl (3.4-5.0); CALCIUM 8.9 mg/dl (8.5-10.1); CREATININE 0.9 mg/dl (0.60-1.40); POTASSIUM 3.6 mmol/L (3.5-5.1)
[2017-04-30 08:33] LABS: TOTAL PROTEIN 7.4 gm/dl (6.4-8.2)
[2017-04-30] MEDS ORDERED: OXYCODONE/ACETAMINOPHEN 5-325 TAB PO PRN ×2 (11:15)
[2017-04-30] MEDS ORDERED: OXYC-57 PO (11:19)
--- NOTE | 2017-04-30 11:27 | Discharge Instructions ---
Discharge Instructions Date of Service Apr 30, 2017. Admission Reason for Admission: Sbo (Small Bowel Obstruction) Discharge Discharge Diagnosis / Problem: same, adhesive band in right upper abdomen Discharge Goals Goal(s): Decrease discomfort, Improve function Activity Recommendations Activity Limitations: per Instructions/Follow-up section No heavy lifting over 10 pounds for 6 weeks No strenuous activity until cleared by surgeon No submerging incision underwater for 2 weeks or until completely healed (No swimming, bathing, or hot tubs) No driving while taking narcotic pain medication or until you are pain free . Instructions / Follow-Up Instructions / Follow-Up FOLLOWUP WITH FAMILY DOCTOR IN ONE WEEK FOLLOWUP WITH SURGERY ON ONE WEEK You may shower in 2 days. Sponge bath and wash hair in meantime. Keep dressing over midline incision and change daily as needed. Surgical lakesha will be removed in office Walking and light activity is encouraged to prevent blood clots from forming in your legs. You will be given narcotic pain medication (Percocet) as needed for moderate to severe pain. This medication may make you drowsy and can cause constipation. To combat constipation, you can take OTC stool softener such as Colace daily, drink plenty of water, daily light activity and walking, and prune juice as needed. You may take extra strength Tylenol or Ibuprofen as needed for mild pain. Follow-up in surgical office in 1 week, please call office at [phone] to make an appointment. Return to work will be determined at follow-up visit Current Hospital Diet Patient's current hospital diet: Clear Liquid Diet Discharge Diet Recommended Diet: Regular Diet Procedures Procedures Performed: Exploratory Laparotomy with lysis of bands Pending Studies Studies pending at discharge: no Work Instructions Return To Work: after follow-up (AFTER FOLLOWUP WITH SURGERY) Medical Emergencies . Who to Call and When: Medical Emergencies: If at any time you feel your situation is an emergency, please call 911 immediately. . Non-Emergent Contact Non-Emergency issues call your: Primary Care Provider, Surgeon Call Non-Emergent contact if: you have a fever, temperature is above 101, your pain is not controlled, your pain is worsening, your pain is unusual for you, wound has increased drainage, wound has increased redness, wound has increased pain . "Provider Documentation" section prepared by Faviola Beard. . VTE Core Measure Inpt VTE Proph given/why not?: SCD's [place] Drug Monitoring Program Search Results: patient reviewed within database, no issues identified
[2017-04-30 13:17] VITALS: BP 132/81; PULSE 59; TEMP 36.8; O2SAT 98
[2017-04-30 15:22] VITALS: BP 129/74; TEMP 36.8; O2SAT 99
--- NOTE | 2017-04-30 17:59 | Progress Note ---
Internal Med Progress Note Date of Service: Apr 30, 2017. Provider Documentation: SUBJECTIVE: off of ng tube passing gas no nausea or abdominal pain no sob or cough afebrile surgery ok for discharge OBJECTIVE: Vital Signs-as noted below Exam: General-alert and awake. Not in distress ENT-normal hearing Neck-no neck masses Lungs-cta b/l no wheezing or crackles Heart-s1 and s2 heard regular no murmurs Abdomen- s/p surgery bowel sounds present no distension Extremities-no edema no erythema Neuro-alert and awake and oriented moves extremities Lab data as noted below. ASSESSMENT & PLAN: sbo s/p surgery and adhesion lysis was on ng tube iv fluids iv pain meds and antiemetics diet as per surgery off of ng tube surgery ok to d/c home on regular diet and followup in one week discharged Vital Signs: Date Time Temp Pulse Resp B/P (MAP) Pulse Ox O2 Delivery O2 Flow Rate FiO2 04/30/17 15:22 36.8 18 129/74 (92) 99 Room Air 04/30/17 13:17 36.8 59 16 98 Room Air 04/30/17 07:15 Room Air 04/30/17 07:01 36.8 59 16 132/81 (98) 98 Room Air 04/30/17 00:05 Room Air 04/29/17 22:54 36.8 60 16 132/75 (94) 95 Room Air Lab Results: Results Past 24 Hours Test 04/30/17 07:20 Range/Units White Blood Count 6.11 4.8-10.8 K/uL Red Blood Count 4.71 4.7-6.1 M/uL Hemoglobin 15.2 14.0-18.0 g/dL Hematocrit 44.3 42-52 % Mean Corpuscular Volume 94.1 80-100 fL Mean Corpuscular Hemoglobin 32.3 25-34 pg Mean Corpuscular Hemoglobin Concent 34.3 32-36 g/dl RDW Standard Deviation 41.8 36.4-46.3 fL RDW Coefficient of Variation 12.2 11.5-14.5 % Platelet Count 237 130-400 K/uL Mean Platelet Volume 10.3 7.4-10.4 fL Sodium Level 139 136-145 mmol/L Potassium Level 3.6 3.5-5.1 mmol/L Chloride Level 103 98-107 mmol/L Carbon Dioxide Level 30 21-32 mmol/L Anion Gap 6.0 3-11 mmol/L Blood Urea Nitrogen 7 7-18 mg/dl Creatinine 0.90 0.60-1.40 mg/dl Est Creatinine Clear Calc Drug Dose 114.9 ml/min Estimated GFR () 125.1 Estimated GFR (Non- 108.0 BUN/Creatinine Ratio 8.2 10-20 Random Glucose 121 70-99 mg/dl Calcium Level 8.9 8.5-10.1 mg/dl Total Bilirubin 1.9 0.2-1 mg/dl Direct Bilirubin 0.3 0-0.2 mg/dl Aspartate Amino Transf (AST/SGOT) 14 15-37 U/L Alanine Aminotransferase (ALT/SGPT) 21 12-78 U/L Alkaline Phosphatase 62 45-117 U/L Total Protein 7.4 6.4-8.2 gm/dl Albumin 3.8 3.4-5.0 gm/dl Globulin 3.6 2.5-4.0 gm/dl Albumin/Globulin Ratio 1.1 0.9-2
--- NOTE | 2017-04-30 19:32 | Discharge Summary ---
Discharge Summary Date of Service Apr 30, 2017. Discharge Summary Admission Date: Apr 27, 2017 at 23:06 Discharge Date: Apr 30, 2017 Discharge Disposition: Home Principal Diagnosis: SBO S/P SURGERY Procedures: CT SCAN ABD/PELVIS: 1. Findings consistent with moderate grade small bowel obstruction. Fluid-filled moderately dilated small bowel with transition point within the right upper quadrant, likely within the ileum. Mild associated mesenteric infiltration. The etiology for the small bowel obstruction is not entirely clear on this exam. 2. 3 cm enhancing focus within the right upper quadrant which is highly suggestive of heterotopic pancreatic tissue, possibly associated with a Meckel's diverticulum. It is unclear whether these findings are related to the small bowel obstruction. Consultations: SURGERY Medication Reconciliation New Medications: Oxycodone/Acetaminophen 5MG/325MG (Percocet 5MG/325MG) Tab 1-2 TABLETS PO Q4H PRN for Pain, #30 TAB Admission Information HPI (per Admitting provider): History obtained from the patient, , and records. No significant medical history. Five days history of achy achy upper abdominal pain with nausea, no emesis, good bowel movement. Constant pain, worsening in the last few days. No fever, no chills. Patient brought to the Emergency Room by . Physical Exam (per Admitting): VITAL SIGNS: Blood pressure was noted to be 130/70, pulse rate 66, RR 18, temp 37, sats 98 on room air. GENERAL: Noted to be slightly uncomfortable, no respiratory distress, pleasant. SKIN: Normal color, warm. HEENT: [place] palpebral conjunctivae. No ptosis. Dry mucosa. NECK: Supple, nontender. CHEST: Clear to auscultation. No tenderness. HEART: Regular rate and rhythm, no murmur. ABDOMEN: Epigastric tenderness, some distention. EXTREMITIES: No edema. No gross deformities. No tenderness. NEUROLOGIC: Coherent. No gross focality. Hospital Course sbo s/p surgery and adhesion lysis was on ng tube iv fluids iv pain meds and antiemetics diet as per surgery off of ng tube surgery ok to d/c home on regular diet and followup in one week discharged Total time spent on discharge = 35MINUTES This includes examination of the patient, discharge planning, medication reconciliation, and communication with other providers. Discharge Instructions Discharge Instructions Date of Service Apr 30, 2017. Admission Reason for Admission: Sbo (Small Bowel Obstruction) Discharge Discharge Diagnosis / Problem: same, adhesive band in right upper abdomen Discharge Goals Goal(s): Decrease discomfort, Improve function Activity Recommendations Activity Limitations: per Instructions/Follow-up section No heavy lifting over 10 pounds for 6 weeks No strenuous activity until cleared by surgeon No submerging incision underwater for 2 weeks or until completely healed (No swimming, bathing, or hot tubs) No driving while taking narcotic pain medication or until you are pain free . Instructions / Follow-Up Instructions / Follow-Up FOLLOWUP WITH FAMILY DOCTOR IN ONE WEEK FOLLOWUP WITH SURGERY ON ONE WEEK You may shower in 2 days. Sponge bath and wash hair in meantime. Keep dressing over midline incision and change daily as needed. Surgical lakesha will be removed in office Walking and light activity is encouraged to prevent blood clots from forming in your legs. You will be given narcotic pain medication (Percocet) as needed for moderate to severe pain. This medication may make you drowsy and can cause constipation. To combat constipation, you can take OTC stool softener such as Colace daily, drink plenty of water, daily light activity and walking, and prune juice as needed. You may take extra strength Tylenol or Ibuprofen as needed for mild pain. Follow-up in surgical office in 1 week, please call office at [phone] to make an appointment. Return to work will be determined at follow-up visit Current Hospital Diet Patient's current hospital diet: Clear Liquid Diet Discharge Diet Recommended Diet: Regular Diet Procedures Procedures Performed: Exploratory Laparotomy with lysis of bands Pending Studies Studies pending at discharge: no Work Instructions Return To Work: after follow-up (AFTER FOLLOWUP WITH SURGERY) Medical Emergencies . Who to Call and When: Medical Emergencies: If at any time you feel your situation is an emergency, please call 911 immediately. . Non-Emergent Contact Non-Emergency issues call your: Primary Care Provider, Surgeon Call Non-Emergent contact if: you have a fever, temperature is above 101, your pain is not controlled, your pain is worsening, your pain is unusual for you, wound has increased drainage, wound has increased redness, wound has increased pain . "Provider Documentation" section prepared by Faviola Beard. . VTE Core Measure Inpt VTE Proph given/why not?: SCD's [place] Drug Monitoring Program Search Results: patient reviewed within database, no issues identified
== END 2017-04-30 17:29 | disposition home or self-care (01) | DRG 337 ==
LOC: C.EDB 20:25 → C.MSN 23:06 → ENRESERV 23:20
PROVIDERS: ADMIT Family Medicine; ATTEND Internal Medicine
PROC: 0DN80ZZ Release Small Intestine, Open Approach (ICD-10-PCS; principal; 2017-04-28 01:47)
DX: K56.50 Intestinal adhesions [bands], unspecified as to partial versus complete obstruction (principal); Q43.0 Meckel's diverticulum (displaced) (hypertrophic)